=== PATIENT | male | born 1955 | race Caucasian/White ===

== ENCOUNTER 2020-02-20 16:30 | Outpatient (REF) | payer OTHER, SELFPAY | END 2020-02-20 16:31 | disposition home or self-care (01) | LOC: HO.LAB 16:30 | PROVIDERS: Visit Provider Nurse Practitioner Family | DX: Z20.828 Contact with and (suspected) exposure to other viral communicable diseases (principal); R07.0 Pain in throat | CPT/HCPCS: U0003 ==